=== PATIENT | male | born 1985 | race Hispanic/Latino ===

== ENCOUNTER 2024-05-10 09:06 | Emergency (ER) | payer SELFPAY ==
[2024-05-10] VITALS (20 sets, daily range): BP systolic 111–135; BP diastolic 74–87
[~2024-05-10] VITALS: Ht 175.3 cm; Wt 67.0 kg
[~2024-05-10 09:06] MED LIST: LEVOFLOXACIN500MG PO; NAPROXEN500 MG PO
[2024-05-10] MEDS ORDERED: KETOROLAC TROMETHAMINE 30 MG/ML SDV IM ONE (10:00)
[2024-05-10] MEDS ORDERED: TRAMADOL HYDROC50 M1 PO (13:54)
== END 2024-05-10 14:00 | disposition home or self-care (01) | DRG 563 ==
LOC: ED 09:06
DX: S92.412A Displaced fracture of proximal phalanx of left great toe, initial encounter for closed fracture (principal); W51.XXXA Accidental striking against or bumped into by another person, initial encounter; Y93.66 Activity, soccer